=== PATIENT | female | born 1935 | race Caucasian/White ===

== ENCOUNTER 2017-04-30 05:39 | Emergency (ER) | payer MEDICARE, OTHER ==
--- NOTE | 2017-04-30 06:05 | ERPHSYRPT ---
- History of Present Illness Time Seen by Provider: 04/30/17 06:02 Source: patient Exam Limitations: no limitations Patient Subjective Stated Complaint: Pt reports nausea, chills, and feeling very hot since 1 hour [employer]. Pt reports checking blood sugar at home and found to be 109 mg/dL. Denies vomiting, diarrhea. Denies urinary symptoms. Pt reports feeling sad which is unusual for her. Triage Nursing Assessment: Pt alert, oriented, answers all questions appropriately. Pt able to stand and transfer from wheelchairt to bed without difficulty. Steady gait noted. ABD soft, non-tender, bowel sounds present all quadrants. Physician History: 81-year-old white female arrives with complaint of a suddenly waking up feeling nauseous chills patient states she felt hot from the head up symptoms for one hour. States she is feeling better. Patient has no chest pain no urine problems no abdominal pain. Past medical history includes diabetes, high blood pressure Past surgical history includes hysterectomy Timing/Duration: today (one hour) Severity: moderate Modifying Factors: Improves With: nothing Associated Symptoms: nausea, malaise, other (patient states she felt hot), No vomiting, No abdominal pain, No shortness of breath, No heartburn, No diaphoresis, No cough, No chills, No chest pain, No fever, No headaches, No loss of appetite, No rash, No syncope, No seizure, No weakness Allergies/Adverse Reactions: No Known Drug Allergies Allergy (Verified 04/30/17 05:56) Home Medications: Aspirin 81 mg PO DAILY 07/08/14 [History] Calcium [Natural Calcium] 600 mg PO DAILY 07/08/14 [History] Fenofibrate,Micronized [Fenofibrate] 160 mg PO DAILY 07/08/14 [History] Glyburide Micronized 3 mg [Glynase 3 MG] 3 mg PO BID 07/08/14 [History] Omeprazole 20 MG [Prilosec 20 mg] 20 mg PO DAILY 07/08/14 [History] Verapamil HCl [Verapamil Sr] 200 mg PO DAILY 07/08/14 [History] Metformin HCl [Metformin HCl ER] 500 mg PO DAILY 04/30/17 [History] Hx Influenza Vaccination/Date Given: Yes Hx Pneumococcal Vaccination/Date Given: Yes Immunizations Up to Date: Yes - Review of Systems Constitutional: Chills, Other (patient states she felt hot) Eyes: No Symptoms Ears, Nose, & Throat: No Symptoms Respiratory: No Cough, No Dyspnea Cardiac: No Chest Pain, No Edema, No Syncope Abdominal/Gastrointestinal: Nausea, No Abdominal Pain, No Vomiting, No Diarrhea , No Constipation, No Hematemesis, No Hematochezia, No Melena, No Dysphagia, No Appetite Changes Genitourinary Symptoms: No Dysuria Musculoskeletal: No Back Pain, No Neck Pain Skin: No Rash Neurological: No Dizziness, No Focal Weakness, No Sensory Changes Psychological: No Symptoms Endocrine: No Symptoms All Other Systems: Reviewed and Negative - Past Medical History Pertinent Past Medical History: Yes Neurological History: No Pertinent History ENT History: Cataracts Cardiac History: High Cholesterol, Hypertension Respiratory History: No Pertinent History Endocrine Medical History: Diabetes Type II Musculoskeletal History: No Pertinent History GI Medical History: No Pertinent History History: No Pertinent History Psycho-Social History: No Pertinent History Female Reproductive Disorders: No Pertinent History - Past Surgical History Past Surgical History: Yes Neuro Surgical History: No Pertinent History Cardiac: No Pertinent History Respiratory: No Pertinent History Gastrointestinal: No Pertinent History Genitourinary: No Pertinent History Musculoskeletal: No Pertinent History Female Surgical History: Hysterectomy - Social History Smoking Status: Never smoker Exposure to second hand smoke: No Drug Use: none Patient Lives Alone: No - Nursing Vital Signs Nursing Vital Signs: Initial Vital Signs Temperature 97.3 F 04/30/17 05:48 Pulse Rate 83 04/30/17 05:48 Respiratory Rate 16 04/30/17 05:48 Blood Pressure 169/75 04/30/17 05:48 O2 Sat by Pulse Oximetry 97 04/30/17 05:48 Pain Scale Pain Intensity 0 - Physical Exam General Appearance: no apparent distress, alert Eye Exam: PERRL/EOMI, eyes nml inspection Ears, Nose, Throat Exam: normal ENT inspection, TMs normal, pharynx normal, moist mucous membranes Neck Exam: normal inspection, non-tender, supple, full range of motion Respiratory Exam: normal breath sounds, lungs clear, No respiratory distress Cardiovascular Exam: regular rate/rhythm, normal heart sounds, normal peripheral pulses Gastrointestinal/Abdomen Exam: soft, normal bowel sounds, No tenderness, No mass Back Exam: normal inspection, normal range of motion, No CVA tenderness, No vertebral tenderness Extremity Exam: normal inspection, normal range of motion, pelvis stable Neurologic Exam: alert, oriented x 3, cooperative, normal mood/affect, nml cerebellar function, nml station & gait, sensation nml, No motor deficits Skin Exam: normal color, warm, dry, No rash Lymphatic Exam: No adenopathy SpO2 Interpretation: normal (97%) SpO2: 97 Oxygen Delivery: Room Air - Course Nursing assessment & vital signs reviewed: Yes EKG Interpreted by Me: RATE (82 bpm), Other (EKG sinus arrhythmia with PVC, 82 bpm, normal axis, no acute ST or T wave changes noted) - Radiology Exams Chest X-ray Interpretation: Interpreted by me, Negative, No Pneumonia, No Pneumothorax , Other (no acute disease process) Ordered Tests: Active Orders 24 hr Category Date Time Status Accucheck STAT Care 04/30/17 06:07 Active Clean Catch Urine Specimen STAT Care 04/30/17 07:09 Active EKG-ER Only STAT Care 04/30/17 06:05 Active IV Insertion STAT Care 04/30/17 06:01 Active CHEST 1 VIEW (PORTABLE) Stat Exams 04/30/17 06:37 Taken AMYLASE Stat Lab 04/30/17 06:25 Completed CBC W DIFF Stat Lab 04/30/17 06:25 Completed CMP Stat Lab 04/30/17 06:25 Completed CULTURE, THROAT Stat Lab 04/30/17 06:25 Received CULTURE,URINE Stat Lab 04/30/17 07:05 Received LIPASE Stat Lab 04/30/17 06:25 Completed STREP SCREEN-BETA A Stat Lab 04/30/17 06:25 Completed UA W/ MICROSCOPIC Stat Lab 04/30/17 07:05 Completed Medication Summary Generic Name Dose Route Start Last Admin Trade Name Madiq PRN Reason Stop Dose Admin Sodium Chloride 1,000 mls @ 100 mls/hr 04/30/17 06:15 04/30/17 06:58 Sodium Chloride 0.9% 1000 Ml IV 05/30/17 06:14 100 mls/hr .Q10H LUIZ Administration Lab/Rad Data: Laboratory Result Diagrams 04/30/17 06:25 04/30/17 06:25 Laboratory Results 04/30/17 04/30/17 04/30/17 Range/Units 07:05 06:25 06:25 WBC (4.0-10.5) K/mm3 RBC (4.1-5.4) M/mm3 Hgb (12.0-16.0) gm/dl Hct (35-47) % MCV (78-100) fl MCH (26-32) pg MCHC (32-36) g/dl RDW (11.5-14.0) % Plt Count (150-450) K/mm3 MPV (6-9.5) fl Gran % (36.0-66.0) % Lymphocytes % (24.0-44.0) % Monocytes % (0.0-12.0) % Eosinophils % (0.00-5.0) % Basophils % (0.0-0.4) % Basophils # (0-0.4) Sodium 141 (136-145) mEq/L Potassium 4.1 (3.5-5.1) mEq/L Chloride 103 (98-107) mEq/L Carbon Dioxide 27.2 (21-32) mEq/L Anion Gap 15.2 H (5-15) MEQ/L BUN 16 (9-20) mg/dL Creatinine 0.89 (0.55-1.30) mg/dl Estimated GFR > 60 ML/MIN Glucose 176 H (70-110) MG/DL Calcium 9.3 (8.5-10.1) mg/dL Total Bilirubin 0.30 (0.2-1.0) mg/dL AST 17 (15-37) U/L ALT 28 (12-78) U/L Alkaline Phosphatase 64 (46-116) U/L Serum Total Protein 7.6 (6.4-8.2) gm/dL Albumin 4.0 (3.4-5.0) g/dL Amylase 74 (25-115) U/L Lipase 204 (73-393) U/L Ur Collection Type VOID Urine Color YELLOW (YELLOW) Urine Appearance CLEAR (CLEAR) Urine pH 7.0 (5-6) Ur Specific [place] 1.010 (1.005-1.025) Urine Protein NEGATIVE (Negative) Urine Ketones NEGATIVE (NEGATIVE) Urine Blood 5-10 (0-5) [place]/ul Urine Nitrite NEGATIVE (NEGATIVE) Urine Bilirubin NEGATIVE (NEGATIVE) Urine Urobilinogen NORMAL (0-1) mg/dL Ur Leukocyte Esterase 1+ (NEGATIVE) Urine Microscopic RBC 0-2 (0-2) /HPF Urine Microscopic WBC 2-5 (0-5) /HPF Ur Epithelial Cells FEW (FEW) /HPF Urine Bacteria FEW (NEGATIVE) /HPF Urine Culture Reflexed YES (NO) Urine Glucose 100 (NEGATIVE) mg/dL Streptococcus Screen NEGATIVE (Negative) Specimen Received 04/30/17 0705 04/30/17 Range/Units 06:25 WBC 5.4 (4.0-10.5) K/mm3 RBC 5.14 (4.1-5.4) M/mm3 Hgb 13.6 (12.0-16.0) gm/dl Hct 44.0 (35-47) % MCV 85.6 (78-100) fl MCH 26.5 (26-32) pg MCHC 30.9 L (32-36) g/dl RDW 13.6 (11.5-14.0) % Plt Count 267 (150-450) K/mm3 MPV 9.6 H (6-9.5) fl Gran % 61.4 (36.0-66.0) % Lymphocytes % 27.4 (24.0-44.0) % Monocytes % 7.8 (0.0-12.0) % Eosinophils % 2.8 (0.00-5.0) % Basophils % 0.6 (0.0-0.4) % Basophils # 0.03 (0-0.4) Sodium (136-145) mEq/L Potassium (3.5-5.1) mEq/L Chloride (98-107) mEq/L Carbon Dioxide (21-32) mEq/L Anion Gap (5-15) MEQ/L BUN (9-20) mg/dL Creatinine (0.55-1.30) mg/dl Estimated GFR ML/MIN Glucose (70-110) MG/DL Calcium (8.5-10.1) mg/dL Total Bilirubin (0.2-1.0) mg/dL AST (15-37) U/L ALT (12-78) U/L Alkaline Phosphatase (46-116) U/L Serum Total Protein (6.4-8.2) gm/dL Albumin (3.4-5.0) g/dL Amylase (25-115) U/L Lipase (73-393) U/L Ur Collection Type Urine Color (YELLOW) Urine Appearance (CLEAR) Urine pH (5-6) Ur Specific [place] (1.005-1.025) Urine Protein (Negative) Urine Ketones (NEGATIVE) Urine Blood (0-5) [place]/ul Urine Nitrite (NEGATIVE) Urine Bilirubin (NEGATIVE) Urine Urobilinogen (0-1) mg/dL Ur Leukocyte Esterase (NEGATIVE) Urine Microscopic RBC (0-2) /HPF Urine Microscopic WBC (0-5) /HPF Ur Epithelial Cells (FEW) /HPF Urine Bacteria (NEGATIVE) /HPF Urine Culture Reflexed (NO) Urine Glucose (NEGATIVE) mg/dL Streptococcus Screen (Negative) Specimen Received - Progress Progress: improved Progress Note: 04/30/17 07:18 This is an 81-year-old white female with history of diabetes high blood pressure she awoke the a one hour prior to arrival with of feeling chills nausea felt like her head was hot. States that she felt very sad. She denies any suicidal ideation. Physical examination patient normal examination EKG sinus arrhythmia with PVC 82 bpm no acute changes. Chest x-ray no acute disease process noted CBC and chemistry essentially normal with the exception of a glucose of 176 and an anion gap of 152 strep is negative. Patient states she is feeling markedly improved at this time. She has only received a small amount of IV normal saline. Awaiting urinalysis if urinalysis is normal will consider discharge. 04/30/17 07:24 patient's urine essentially normal, there is a glucose in the urine of 100 Patient's chemistry shows a glucose of 176 Patient is feeling much better Will run in a bolus of 250 mL of normal saline and plan on discharge. Patient without complaints at this time. - Departure Time of Disposition: 07:25 Departure Disposition: Home Clinical Impression: Chills, Nausea, Malaise Condition: Fair Critical Care Time: No Referrals: RAVINDER COOPER [Primary Care Provider] - Additional Instructions: Return home. Rest. Plenty of fluids. Follow-up with Dr. Cooper call for an appointment. Return for acute distress severe symptoms or any problems.
[2017-04-30] MEDS ORDERED: Sodium Chloride 0.9% 1000 ML 1,000 ML IV SCH (06:15)
[2017-04-30 06:45] LABS: BASOPHIL % 0.6 % (0.0-0.4); Eosinophil % 2.8 % (0.00-5.0); Granulocytes % 61.4 % (36.0-66.0); Lymphocytes % 27.4 % (24.0-44.0); Mean Cell Volume 85.6 fl (78-100); Mean Corpuscular Hemoglobin 26.5 pg (26-32); Mean Platelet Volume 9.6 fl (6-9.5); Monocytes % 7.8 % (0.0-12.0); Platelet Count 267 K/mm3 (150-450); Red Blood Count 5.14 M/mm3 (4.1-5.4); Red Cell Distribution Width 13.6 % (11.5-14.0); White Blood Count 5.4 K/mm3 (4.0-10.5)
[2017-04-30] MEDS ORDERED: Sodium Chloride 0.9% 1000 ML 1,000 ML ONE (06:57)
[2017-04-30 07:06] LABS: ALKALINE PHOSPHATASE 64 U/L (46-116); ANION GAP 15.2 MEQ/L (5-15); BLOOD UREA NITROGEN 16 mg/dL (9-20); CHLORIDE 103 mEq/L (98-107); Carbon Dioxide 27.2 mEq/L (21-32); Glucose 176 MG/DL (70-110); LIPASE 204 U/L (73-393); Potassium 4.1 mEq/L (3.5-5.1); SGOT/AST 17 U/L (15-37); SGPT/ALT 28 U/L (12-78); SODIUM 141 mEq/L (136-145); Total Protein 7.6 gm/dL (6.4-8.2)
[2017-04-30 07:20] LABS: Bilirubin NEGATIVE (NEGATIVE); COMPLETE URINE MICROSCOPIC? YES; Collection Type VOID; Glucose 100 mg/dL (NEGATIVE); Leukocyte Esterase 1+ (NEGATIVE)
[2017-04-30 07:21] LABS: ADD URINE CULTURE? YES (NO); Bacteria FEW /HPF (NEGATIVE); Epithelial Cells FEW /HPF (FEW)
[2017-04-30 08:13] VITALS: BP 155/77; PULSE 82; O2SAT 98
--- NOTE | 2017-04-30 08:49 | XRAY ---
Indication: Chills. Comparison: None Lungs are inflated and clear. Heart and mediastinal structures within normal limits. Bony thorax intact with mild osteopenia and degenerative changes. Impression: Nonacute chest.
== END 2017-04-30 08:11 | disposition home or self-care (01) ==
LOC: ED 05:39
DX: R11.0 Nausea (principal); R53.81 Other malaise; R68.83 Chills (without fever); E11.9 Type 2 diabetes mellitus without complications; I10 Essential (primary) hypertension
CPT/HCPCS: 36000; 36415; 71010; 80053; 81000; 82150; 83690; 85025; 87070; 87086; 87430; 93005; 96360; 96361; 99284